=== PATIENT | male | born 1955 | race Caucasian/White ===

== ENCOUNTER → 2017-10-21 | Day surgery (SDC) | payer BC ==
[~2017-10-21] MED LIST: FENTANYL CITRATE/PF 100MCG/2 ML INJ ONE; HYOSCYAMINE SULFATE 0.5 MG/ML AMP ONE; LIDOCAINE HCL 2% LOCAL INJ 5 ML SDV VIAL INJ ONE; MIDAZOLAM HCL 2 MG/2 ML VIAL ONE; PROPOFOL IV EMULSION 10 MG/ML 50 ML VIAL ONE
--- OUTSIDE RECORDS SUMMARY | 2017-10-21 11:33 | XMS REPORT | Clinical Summary ---
Author Author [employer] Address Unknown Phone Unavailable Care Team Providers Care City Administrator Name Role Phone Jw Garcia PCP Allergies No Known Allergies Current Medications Prescription Sig. Disp. Refills Start End Date Status Date ibuprofen (ADVIL,MOTRIN) Take 400 mg by mouth as Active 400 MG tablet needed for mild pain. Active Problems Not on file Encounters Date Type Specialty Care Team Description 10/14/2017 Office Visit Gastroenterology Varinder Thompson MD Hepatitis C virus infection without hepatic coma, unspecified chronicity (Primary Dx) after 10/20/2016 Family History Medical History Relation Name Comments Diabetes Father Diabetes Paternal Grandmother Relation Name Status Comments Father Paternal Grandmother Social History Tobacco Use Types Packs/Day Years Used Date Current Every Day Smoker Cigars 4 Smokeless Tobacco: Never Used Comments: daily Alcohol Use Drinks/Week oz/Week Comments No Sex Assigned at Date Recorded Not on file Last Filed Vital Signs Vital Sign Reading Time Taken Blood Pressure 165/77 10/14/2017 12:52 PM CDT Pulse 77 10/14/2017 12:52 PM CDT Temperature 37.1 C (98.7 F) 10/14/2017 12:52 PM CDT Respiratory Rate 14 10/14/2017 12:52 PM CDT Oxygen Saturation - - Inhaled Oxygen - - Concentration Weight 102 kg (225 lb) 10/14/2017 12:52 PM CDT Height 170.2 cm (5' 7") 10/14/2017 12:52 PM CDT Body Mass Index 35.24 10/14/2017 12:52 PM CDT Plan of Treatment Date Type Specialty Care Team Description 10/27/2017 Appointment Radiology Varinder Thompson MD [address] [place] [id number] 11/11/2017 Office Visit Gastroenterology Varinder Thompson MD [facility] [place] [address] [id number] Health Maintenance Due Date Last Done Comments COLONOSCOPY 2007 ZOSTER VACCINE 2017 INFLUENZA VACCINE 03/01/2017 Results Not on fileafter 10/20/2016 Insurance Payer Benefit Subscriber ID Type Phone Address Plan / Group BCBS BCBS xxxxxxxxxxxx PPO CHOICE PPO/[place] [address]
--- NOTE | 2017-10-21 16:47 | Operative Report ---
DATE OF PROCEDURE: October 21, 2017 REFERRING PHYSICIAN: Dr. Allen Garcia. PROCEDURE PERFORMED: Colonoscopy and polypectomy INDICATIONS FOR COLONOSCOPY: Colorectal cancer screening. MEDICATION: Patient was done under MAC. Please see anesthesiologist's note. PROCEDURE: With patient in the left lateral decubitus position, flexible fiberoptic Olympus colonoscope was inserted into the rectum with ease and advanced all the way to the cecum. A prominent fold was noted in the cecum and that was partially resected per snare electrocautery. The ascending appeared to be within normal limits. (DR. MATTA SAYS CANCEL THIS, I ALREADY DICTATED IT). Job#: [id number]
--- NOTE | 2017-10-21 16:53 | Operative Report ---
DATE OF PROCEDURE: October 21, 2017 REFERRING PHYSICIAN: Dr. Leeanna Loyd. PROCEDURE PERFORMED: Colonoscopy and polypectomy. INDICATIONS FOR COLONOSCOPY: Colorectal cancer screening. MEDICATION: Patient was done under MAC. Please see anesthesiologist's note. PROCEDURE: With the patient in the left lateral decubitus position, the flexible fiberoptic Olympus colonoscope was inserted into the rectum with ease and advanced all the way to the cecum. A prominent fold was noted at the junction of the cecum and the ascending colon, and that was partially resected per snare electrocautery. The rest of the ascending appeared to be within normal limits. One polyp was snared from the transverse colon. One polyp was hot biopsied from the descending colon. Three polyps were snared and 3 polyps were hot biopsied from the sigmoid colon, and 4 polyps were hot biopsied from the rectum. The scope was then retroflexed into the distal rectum and small internal hemorrhoids were noted, none of which was actively bleeding. The scope was then straightened out. It was subsequently withdrawn. Patient tolerated the procedure well. IMPRESSION: 1. Prominent fold, cecum, partially resected per snare electrocautery. 2. Transverse colon polyp, snared. 3. Descending colon polyp, ____hot biopsied. 4. Sigmoid colon polyps times 6, 3 snared and 3 hot biopsied. 5. Rectal polyps times 4, hot biopsied. 6. Internal hemorrhoids, none actively bleeding. PLAN: Follow up histology. Initiate high-fiber low-fat diet. Initiate high-fiber supplement. A total of ___13 polyps were removed. Job#: [id number] EV cc:LEEANNA LOYD DO
== END | disposition home or self-care (01) ==
LOC: OR 11:31
PROVIDERS: ATTEND Internal Medicine Gastroenterology
DX: Z12.11 Encounter for screening for malignant neoplasm of colon (principal); D12.5 Benign neoplasm of sigmoid colon; K62.1 Rectal polyp; K63.89 Other specified diseases of intestine; K64.8 Other hemorrhoids; F17.210 Nicotine dependence, cigarettes, uncomplicated; Z01.810 Encounter for preprocedural cardiovascular examination; Z68.35 Body mass index [BMI] 35.0-35.9, adult
CPT/HCPCS: 45384; 45385; 93005; J1980; J2001; J2250